=== PATIENT | female | born 1935 | race Caucasian/White ===

== ENCOUNTER 2019-02-27 09:50 | Observation (INO) | payer MEDICARE ==
[~2019-02-27] VITALS: Ht 157.5 cm; Wt 79.8 kg
--- NOTE | ~2019-02-27 | CON ---
[address] [address] CONSULTATION Name: MCLAINCRUZ E Room: [address] Veronica Pete#: [id number] Admission: 02/27/19 Attend Phys: Storm Osullivan MD Discharge: 02/28/19 Date of : 35 Report #: [id number] THIS REPORT FOR: //name// CC: Storm Mathur HISTORY OF PRESENT ILLNESS: The patient is an 83-year-old female who presents with a near syncopal episode. The patient states that she had been feeling somewhat lightheaded even the day prior to this admission, she began to cough and then felt quite lightheaded. Apparently, her blood pressure this morning was 77/46. She takes two separate medications for blood pressure, but today the amlodipine has been held. The patient states she typically has no difficulty with her blood pressure whatsoever and has no side effects from her medications. The patient has had a CT scan of the head, carotid Doppler study, venous Doppler study, nuclear lung scan and echocardiogram. These tests are all unremarkable with the exception of the echocardiogram, which shows a patent foramen ovale. PAST MEDICAL HISTORY: Hypertension, hyperlipidemia, depression/anxiety. PAST SURGICAL HISTORY: Negative. MEDICATIONS: Amlodipine 5 mg daily, atorvastatin 20 mg daily, bupropion XL 300 mg daily, Coreg 3.125 mg b.i.d., gabapentin 300 mg at bedtime, estradiol 0.5 mg daily, furosemide 20 mg 3 times a week, fish oil daily, multivitamin daily, vitamin D 2000 units daily. ALLERGIES: SULFA AND METOPROLOL. PHYSICAL EXAMINATION: VITAL SIGNS: Temperature is 36.7, pulse rate 91, respiratory rate 16, blood pressure 153/84, bedside pulse oximetry 99% on room air. LABORATORY DATA: Hematology: White blood cell count 5.9, hemoglobin 11.4, hematocrit 34.3, MCV 89.1, platelet count 252,000. INR 1. Urinalysis negative. Chemistry: Sodium 140, potassium 4.3, chloride 106, carbon dioxide 26, BUN 18, creatinine 0.9, GFR 60, glucose 88, hemoglobin A1c 5.6. Liver functions normal. Triglycerides 105, cholesterol 107, LDL cholesterol 31, HDL cholesterol 55. NEUROLOGIC: Cranial nerves 2-12 are grossly intact. Motor exam demonstrates symmetrical strength in all 4 extremities with tone and bulk normal. Coordination reveals intact [id number]. Gait was not tested. IMPRESSION AND PLAN: This patient had a near syncopal episode. This may be secondary to blood pressure medication, which needs to be adjusted. Perhaps the diuretic needs to be discontinued. When she was admitted, [place] [address] CONSULTATION Name: CRUZ MCLAIN [address] [id number] Admission: 02/27/19 Attend Phys: Storm Osullivan MD Discharge: 02/28/19 Date of : 35 Report #: [id number] very mild dehydration. It should also be noted that coughing can cause syncope. This is typically seen in men, but of course can happen in women. I also discussed the patent foramen ovale with the patient and I explained to her this does increase her risk for stroke, but she did not seem to be interested in having this investigated further, although perhaps a consultation with a splicer apprentice should be considered. This could be done as an outpatient. I thank you for your kind referral of the patient. At this point, I have no further recommendations other than those mentioned. By: [id number] Cameron DO /nt
[2019-02-27 09:51] VITALS: BP 129/64
[2019-02-27] MEDS ORDERED: LIPITOR 20 MG T20 M1 PO (10:15)
[2019-02-27] MEDS ORDERED: WELLBUTRIN XL300 MG PO (10:15)
[2019-02-27] MEDS ORDERED: NORVASC5 MG PO (10:15)
[2019-02-27] MEDS ORDERED: ESTRADIOL 1 MG T1 M1 PO (10:16)
[2019-02-27] MEDS ORDERED: CARVEDILOL3.125 MG PO (10:16)
[2019-02-27] MEDS ORDERED: NEURONTIN300 MG PO (10:16)
[2019-02-27] MEDS ORDERED: FUROSEMIDE 20 M20 M1 PO (10:17)
[2019-02-27] MEDS ORDERED: UNICOMPLEX M TA1 TA1 PO (10:18)
[2019-02-27] MEDS ORDERED: FISH OIL 1,001000 M2 PO (10:18)
[2019-02-27 10:19] LABS: ABSOLUTE EOSINOPHILS 0.1 thou/uL (0.0-0.7); ABSOLUTE LYMPHOCYTES 1.5 thou/uL (0.8-5.3); ABSOLUTE MONOCYTES 0.4 thou/uL (0.0-1.2); ABSOLUTE NEUTROPHILS 1.6 thou/uL (1.6-8.1); BASOPHILS 1.2 %; EOSINOPHILS 2.6 %; HEMATOCRIT 34.4 % (37.0-47.0); HEMOGLOBIN 11.4 gm/dL (12.0-15.0); LYMPHOCYTES 42.3 %; MCH 29.6 pg (26.0-34.0); MCV 89.5 fL (80.0-100.0); MONOCYTES 10.3 %; MPV 7.2 fl. (7.2-11.1); NUCLEATED RBCS 0 /100WBC; PLATELET COUNT* 252 thou/uL (150-400); POLYS 43.6 %; RBC 3.84 mil/uL (4.20-5.00); RDW-CV 12.7 % (10.5-14.5); WBC 3.6 thou/uL (4.0-11.0)
[2019-02-27] MEDS ORDERED: VITAMIN D2000 UNIT PO (10:19)
[2019-02-27 10:29] LABS: APTT 38.4 Seconds (25.0-31.3); PROTIME 10.1 Seconds (9.20-11.50)
[2019-02-27 10:35] LABS: ANION GAP 7 mmol/L (7-16); BUN 22 mg/dL (7-18); CALCIUM 8.1 mg/dL (8.5-10.1); CHLORIDE 105 mmol/L (98-107); CO2 28 mmol/L (21-32); CREATININE 1.3 mg/dL (0.6-1.3); GLUCOSE 125 mg/dL (70-99); POTASSIUM 3.9 mmol/L (3.5-5.1); SODIUM 140 mmol/L (136-145); TROPONIN-I LEVEL <0.06 ng/mL (<0.06)
[2019-02-27 10:37] LABS: ALKALINE PHOSPHATASE 74 U/L (46-116); NT-PRO BRAIN NAT PEPTIDE 103 pg/mL (<300); SGOT 18 U/L (15-37); SGPT 24 U/L (30-65); TOTAL BILIRUBIN 0.3 mg/dL (<0.1-1.0); TOTAL PROTEIN 6.5 g/dL (6.4-8.2)
[2019-02-27 13:01] LABS: URINE BILIRUBIN NEGATIVE (Negative); URINE BLOOD NEGATIVE (Negative); URINE CLARITY CLEAR; URINE COLOR YELLOW; URINE GLUCOSE-RANDOM NEGATIVE (Negative); URINE KETONES NEGATIVE (Negative); URINE LEUKOCYTES-REFLEX NEGATIVE (Negative); URINE NITRITE-REFLEX NEGATIVE (Negative); URINE PROTEIN NEGATIVE (Negative); URINE UROBILINOGEN 0.2 E.U./dl (0.2-1.0)
[2019-02-27 13:54] VITALS: BP 142/68
--- NOTE | 2019-02-27 14:17 | EKG ---
[place] [address] ELECTROCARDIOGRAM REPORT Name: CRUZ MCLAIN Room: [address] ADM IN .R.#: [id number] Admission: 02/27/19 Attend Phys: Storm Osullivan MD Discharge: Date of : 35 Report #: [id number] THIS REPORT FOR: //name// [facility] ED Test Date: 2019-02-27 Test Time: 10:09:52 Pat Name: CRUZ MCLAIN Department: Room: [facility] Gender: F Control Equipment Electrician: Gary MEJIA : 1935 Requested By: Capo Mmoin Order Number: [id number] MD: Ronaldo Farley Measurements Intervals [place] Rate: 71 P: 65 KS: 250 QRS: 37 QRSD: 87 T: 56 QT: 381 QTc: 414 Interpretive Statements Sinus rhythm Prolonged KS interval Anteroseptal infarct, old No previous ECG available for comparison Electronically Signed On 02-27-2019 14:17:12 CDT by Ronaldo Farley [email or web address] <ELECTRONICALLY SIGNED> By: Ronaldo Farley MD, [facility] 02/27/19 1417 1009 1009 Ronaldo Farley MD, [facility] /EPI
[2019-02-27 15:15] VITALS: BP 138/72
[2019-02-27 16:00] VITALS: BP 145/65
--- NOTE | 2019-02-27 17:23 | 2DMMODE ---
[place] [address] 2 D/M-MODE ECHOCARDIOGRAM Name: CRUZ MCLAIN Room: [address] IN [facility]#: [id number] Admission: 02/27/19 Attend Phys: Storm Osullivan, Discharge: Date of : 35 Date of Service: 02/27/19 1723 Report #: [id number] THIS REPORT FOR: //name// APPROVED REPORT Study performed: 02/27/2019 14:52:54 EXAM: Comprehensive 2D, Doppler, and color-flow Echocardiogram Patient Location: In-Patient Room #: 200 Status: routine BSA: 1.76 HR: 54 bpm BP: 138/72 mmHg Rhythm: NSR Other Information Study Quality: Good Indications CVA/TIA Echo Enhancing Agent Indication: Rule out Shunt Agent(s) / Amount(s) Used: Agitated Saline 10 cc 2D Dimensions IVSd: 7.65 (7-11mm) LVOT Diam: 18.59 (18-24mm) LVDd: 42.31 mm PWd: 7.11 (7-11mm) Ascending Ao: 25.47 (22-36mm) LVDs: 23.31 (25-40mm) Aortic Root: 22.63 mm Volumes Left Atrial Volume (Systole) LA ESV Index: 26.10 mL/m2 Aortic Valve AoV Peak Wolf.: 1.34 m/s AO Peak Gr.: 7.15 mmHg LVOT Max P.47 mmHg AO Mean Gr.: 3.61 mmHg LVOT Mean P.66 mmHg LVOT Max V: 0.93 m/s AO V2 VTI: 25.56 cm LVOT Mean V: 0.59 m/s LINDSAY (VTI): 2.12 cm2 LVOT V1 VTI: 20.01 [place] [address] 2 D/M-MODE ECHOCARDIOGRAM Name: CRUZ MCLAIN Room: [address] IN [facility]#: [id number] Admission: 02/27/19 Attend Phys: Storm Osullivan, Discharge: Date of : 35 Date of Service: 02/27/19 1723 Report #: [id number] Mitral Valve E/A Ratio: 0.66 MV Decel. Time: 159.54 ms MV E Max Wolf.: 0.78 m/s MV PHT: 46.27 ms MVA (PHT): 4.76 cm2 TDI E/Lateral E': 7.80 E/Medial E': 8.67 Medial E' Wolf.: 0.09 m/s Lateral E' Wolf.: 0.10 m/s Pulmonary Valve PV Peak Wolf.: 1.15 m/s PV Peak Gr.: 5.25 mmHg Tricuspid Valve RAP Estimate: 5.00 mmHg TR Peak Gr.: 28.22 mmHg RVSP: 33.00 mmHg PA Pressure: 33.00 mmHg Left Ventricle The left ventricle is normal size. There is normal LV segmental wall motion. There is normal left ventricular wall thickness. Left ventricular systolic function is normal. LVEF is 60-65%. Transmitral Doppler flow pattern suggests impaired LV relaxation. Right Ventricle The right ventricle is normal size. The right ventricular systolic function is normal. Atria The left atrium size is normal. Injection of agitated saline shows evidence of [id number]-[id number] shunt most likely consistent with patent foramen ovale. The right atrium size is normal. Aortic Valve The aortic valve is normal in structure. Trace aortic regurgitation. There is no aortic valvular stenosis. Mitral Valve The mitral valve is normal in structure. Trace mitral regurgitation. No evidence of mitral valve stenosis. Tricuspid Valve The tricuspid valve is normal in structure. Mild tricuspid regurgitation. The RVSP is 30-35 [place] [address] 2 D/M-MODE ECHOCARDIOGRAM Name: CRUZ MCLAIN Room: [address] IN .R.#: [id number] Admission: 02/27/19 Attend Phys: Storm Osullivan, Discharge: Date of : 35 Date of Service: 02/27/19 1723 Report #: [id number] Pulmonic Valve The pulmonary valve is normal in structure. Trace pulmonic regurgitation. Great Vessels The aortic root is normal in size. IVC is normal in size and collapses >50% with inspiration. Pericardium There is no pericardial effusion. <Conclusion> The left ventricle is normal size. There is normal left ventricular wall thickness. Left ventricular systolic function is normal. LVEF is 60-65%. Transmitral Doppler flow pattern suggests impaired LV relaxation. Trace aortic regurgitation. Trace mitral regurgitation. Mild tricuspid regurgitation. The RVSP is 30-35 mmHg. Injection of agitated saline shows evidence of [id number] shunt most likely consistent with patent foramen ovale. <ELECTRONICALLY SIGNED> By: Ronaldo Farley MD, FACC 02/27/19 172 22 22 Ronaldo Farley MD, FACC /INF
[2019-02-27 20:00] VITALS: BP 141/73
[2019-02-27 23:06] LABS: GLYCOHEMOGLOBIN (HGB A1C) 5.6 % (4.8-5.6)
[2019-02-27 23:47] VITALS: BP 117/62; BP 136/62
[2019-02-28 04:33] VITALS: BP 133/66
[2019-02-28 05:24] LABS: ABSOLUTE EOSINOPHILS 0.2 thou/uL (0.0-0.7); ABSOLUTE LYMPHOCYTES 2.2 thou/uL (0.8-5.3); ABSOLUTE MONOCYTES 0.5 thou/uL (0.0-1.2); ABSOLUTE NEUTROPHILS 2.1 thou/uL (1.6-8.1); BASOPHILS 0.7 %; EOSINOPHILS 4.2 %; HEMATOCRIT 34.3 % (37.0-47.0); HEMOGLOBIN 11.4 gm/dL (12.0-15.0); LYMPHOCYTES 43.6 %; MCH 29.7 pg (26.0-34.0); MCHC 33.3 g/dL (28.0-37.0); MCV 89.1 fL (80.0-100.0); MONOCYTES 9.3 %; MPV 7.4 fl. (7.2-11.1); NUCLEATED RBCS 0 /100WBC; PLATELET COUNT* 252 thou/uL (150-400); POLYS 42.2 %; RBC 3.86 mil/uL (4.20-5.00); RDW-CV 12.4 % (10.5-14.5); WBC 5.1 thou/uL (4.0-11.0)
[2019-02-28 05:46] LABS: CALCIUM 8.7 mg/dL (8.5-10.1); CREATININE 0.9 mg/dL (0.6-1.3); POTASSIUM 4.3 mmol/L (3.5-5.1)
[2019-02-28 05:47] LABS: CHOLESTEROL 107 mg/dL (<200); HDL CHOLESTEROL 55 mg/dL (>40); LDL CHOLESTEROL 31 mg/dL (<100); TC:HDL 1.9 Ratio (Not establshd); TRIGLYCERIDE 105 mg/dL (<150); VLDL 21 mg/dL (<40)
[2019-02-28 05:49] LABS: SERUM ASSESSMENT CLEAR
[2019-02-28 08:00] VITALS: BP 158/66
[2019-02-28 12:00] VITALS: BP 153/84
[2019-02-28] MEDS ORDERED: PROTONIX40 M2 PO (15:24)
[2019-02-28] MEDS ORDERED: CEFDINIR300 MG PO (15:25)
[2019-02-28] MEDS ORDERED: PREDNISONE 10 M10 MG PO (15:28)
[2019-02-28 15:30] VITALS: BP 153/84
== END 2019-02-28 16:27 | disposition home or self-care (01) ==
LOC: M.ERS 09:50 → M.2W 12:04 → M.TBA-ER 12:04 → M.2W 13:39
PROVIDERS: Family Medicine; ADMIT Internal Medicine
DX: R55 Syncope and collapse (principal); J20.9 Acute bronchitis, unspecified; I95.9 Hypotension, unspecified; D72.819 Decreased white blood cell count, unspecified; Z88.2 Allergy status to sulfonamides; Z88.8 Allergy status to other drugs, medicaments and biological substances; Z79.899 Other long term (current) drug therapy